=== PATIENT | female | born 1935 | race Caucasian/White ===

== ENCOUNTER 2016-06-04 14:49 | Emergency (ER) | payer MEDICARE, BC, OTHER ==
[2016-06-04 15:04] VITALS: BMI 18.8
--- NOTE | 2016-06-04 15:46 | PDOC ---
History of Present Illness - History of Present Illness Initial Comments: 06/04/16 16:32 The patient is a 81 year old female with significant past medical history of hypertension, hyperlipidemia, and depression who presents to the emergency department with weakness for the last few months. The patient had a recent visit to the ED about 3 months ago with the same complaint and was discharged home. She has been doing physical therapy and a home exercise program for her weakness but this doesnt help. The patient states she eats a minimal diet at home but denies any decreased appetite. She denies any pain. The patient denies any bleeding, diarrhea, leg swelling. She denies recent illness, fevers, or chills. She denies any sick contacts. <Gaby Lou - Last Filed: 06/04/16 16:32> - General History Source: Patient Exam Limitations: No Limitations <Jasmin Barnes - Last Filed: 06/06/16 14:06> - General Chief Complaint: Weakness Stated Complaint: Weakness Time Seen by Provider: 06/04/16 15:23 Past History <Gaby Lou - Last Filed: 06/04/16 16:32> - Past Medical History HTN: Yes Hypercholesterolemia: Yes Psychiatric Problems: Yes (DEPRESSION) Suicide Attempt (Hx): No - Psycho/Social/Smoking Cessation Hx Anxiety: No Suicidal Ideation: No Smoking History: Current every day smoker Have you smoked in the past 12 months: Yes Number of Cigarettes Smoked Daily: 3 Information on smoking cessation initiated: No 'Breaking Loose' booklet given: 03/02/16 Hx Alcohol Use: No Drug/Substance Use Hx: No Substance Use Type: None <Jasmin Barnes - Last Filed: 06/06/16 14:06> - Past Medical History Allergies/Adverse Reactions: Allergies Allergy/AdvReac Type Severity Reaction Status Date / Time egg Allergy Verified 06/04/16 15:04 flu shot Allergy Uncoded 06/04/16 15:04 Home Medications: Ambulatory Orders Enalapril Maleate [Vasotec -] 2.5 mg PO DAILY 09/11/15 Escitalopram Oxalate [Lexapro -] 10 mg PO DAILY 09/11/15 Review of Systems - Review of Systems Able to Perform ROS?: Yes Comments:: 06/04/16 16:33 GENERAL/CONSTITUTIONAL: +Weakness. No: fever, chills, loss of appetite. HEAD, EYES, EARS, NOSE AND THROAT: No: change in vision, ear pain, discharge, sore throat, throat swelling. CARDIOVASCULAR: No: chest pain, lightheadedness, palpitations, syncope RESPIRATORY: No: cough, shortness of breath, wheezing, hemoptysis, stridor. GASTROINTESTINAL: No: nausea, vomiting, abdominal cramping, diarrhea, rectal bleeding, constipation. GENITOURINARY: No: dysuria, hematuria, frequency, urgency, flank pain. MUSCULOSKELETAL: No: back pain, neck pain, joint pain, muscle swelling or pain SKIN AND BREASTS: No: lesions, pallor, rash or easy bruising. NEUROLOGIC: No: headache, vertigo, paresthesias, weakness ENDOCRINE: No: unexplained weight gain or loss HEMATOLOGIC/LYMPHATIC: No: anemia, easy bleeding, swelling nodes <Gaby Lou - Last Filed: 06/04/16 16:32> *Physical Exam - Vital Signs Last Vital Signs Temp Pulse Resp BP Pulse Ox 97.4 F L 77 18 115/61 97 06/04/16 14:59 06/04/16 14:59 06/04/16 14:59 06/04/16 14:59 06/04/16 14:59 - Physical Exam Comments: 06/04/16 16:33 GENERAL: The patient is in no acute distress. HEAD: Normal with no signs of trauma. EYES: PERRLA, EOMI, sclera anicteric, conjunctiva clear. ENT: Ears normal, nares patent, oropharynx clear without exudates. Moist mucous membranes. NECK: Normal range of motion, supple without lymphadenopathy, JVD, or masses. LUNGS: Breath sounds equal, clear to auscultation bilaterally. No wheezes, and no crackles. HEART: Regular rate and rhythm, normal S1 and S2 without murmur, rub or gallop. ABDOMEN: Soft, nontender, normoactive bowel sounds. No guarding, no rebound. EXTREMITIES: Normal range of motion, no edema. No clubbing or cyanosis. No erythema, or tenderness. NEUROLOGICAL: Cranial nerves II through XII grossly intact. Normal speech. No focal neurological deficits. MUSCULOSKELETAL: Back non-tender to palpation, no CVA tenderness SKIN: Warm, Dry, normal turgor, no rashes or lesions noted. <Gaby Lou - Last Filed: 06/04/16 16:32> - Vital Signs Last Vital Signs Temp Pulse Resp BP Pulse Ox 97.4 F L 77 18 115/61 97 06/04/16 14:59 06/04/16 14:59 06/04/16 14:59 06/04/16 14:59 06/04/16 14:59 <Jasmin Barnes - Last Filed: 06/06/16 14:06> Heart Score/ECG Review #1 ECG reviewed & interpreted by me at: 17:50 06/04/16 17:50 Twelve-lead EKG was performed and reviewed by me. There is normal sinus rhythm with a normal rate of 66bpm. The axis is normal. The intervals are normal - pr: 168ms, QRS: 74ms, QTc:431ms. There are no ST or T wave abnormalities. <Jasmin Barnes - Last Filed: 06/06/16 14:06> ED Treatment Course - LABORATORY CBC & Chemistry Diagram: 06/04/16 16:25 06/04/16 16:25 <Gaby Lou - Last Filed: 06/04/16 16:32> - LABORATORY CBC & Chemistry Diagram: 06/04/16 16:25 06/04/16 16:25 <Jasmin Barnes - Last Filed: 06/06/16 14:06> Medical Decision Making - Medical Decision Making 06/04/16 15:46 A portion of this note was documented by scribe services under my direction. I have reviewed the details of the note, within reason, and agree with the documentation with the following case summary and management plan written by me. Nursing documentation reviewed and incorporated into medical decision making 06/04/16 17:54 This is a 81-year-old female with recurrent presentations emergency department for generalized weakness. Workup has been unrevealing as far. Patient states she came to the emergency department today because she had difficulty getting out of bed and walking. She denies any fevers chills, chest pain, shortness of breath, palpitations. Patient denies focal weakness or numbness. No head trauma. Patient hasn't worked up by both GI and neurology. Per patient workup has been negative thus far. Patient states she eats a normal diet consistent of Tea, toast, bananas, yogurt. Will do basic labs Case reviewed with Dr Cerna 06/04/16 17:55 Laboratory Tests 06/04/16 06/04/16 16:25 16:25 WBC 5.4 Hgb 15.6 H Hct 46.1 H Plt Count 176 Neutrophils % 67.6 Lymphocytes % 20.0 BUN 10 D Creatinine 0.6 Creatine Kinase 122 Troponin I < 0.02 Case again reviewed with Dr cerna Will place on observation Will hydrate Will monitor Pending UA 06/06/16 13:52 <Jasmin Barnes - Last Filed: 06/06/16 14:06> *DC/Admit/Observation/Transfer - Attestations Scribe Attestion: 06/04/16 16:33 Documentation prepared by Gaby Lou, acting as medical lab director for Jasmin Barnes MD. <Gaby Lou - Last Filed: 06/04/16 16:32> - Discharge Dispostion Admit: Yes <Jasmin Barnes - Last Filed: 06/06/16 14:06> Diagnosis at time of Disposition: Weakness - Discharge Dispostion Disposition: HOME Condition at time of disposition: Stable - Referrals Referrals: Sam Dejesus PSYD [Psychologist] - Lincoln Eaton MD [Primary Care Provider] - - Patient Instructions Printed Discharge Instructions: DI for Muscle Weakness Additional Instructions: Sade Thank you for coming in to the ER today Please call Dr. Eaton tomorrow for an appointment Please also call for a referral to a therapist Return to the ER for any other concerns or complaints
[2016-06-04 16:34] LABS: BASOPHIL 0.9 % (0-2.0); EOSINOPHIL 2.3 % (0-4.5); MCH 30.1 pg (25.7-33.7); MCHC 33.8 g/dl (32.0-36.0); MEAN PLT VOLUME 9.7 fl (7.5-11.1); NEUTROPHILS 67.6 % (42.8-82.8); PLATELET COUNT 176 K/MM3 (134-434); RDW 13.7 % (11.6-15.6); WHITE BLOOD COUNT 5.4 K/mm3 (4.0-10.0)
[2016-06-04 17:08] LABS: ANION GAP 9 (8-16); BILIRUBIN,TOTAL 0.3 mg/dL (0.2-1.0); CO2 29 mmol/L (21-32); CREATININE 0.6 mg/dL (0.55-1.02); GLUCOSE,RANDOM 103 mg/dL (74-106); SGOT/AST 19 U/L (15-37); SGPT/ALT 17 U/L (12-78); TOT PROT 7.3 g/dl (6.4-8.2)
[2016-06-04 17:16] LABS: ALK PHOS 92 U/L (45-117); TROPONIN I < 0.02 ng/ml (0.00-0.05)
--- NOTE | 2016-06-04 18:18 | PDOC ---
ED Treatment Course - LABORATORY CBC & Chemistry Diagram: 06/04/16 16:25 06/04/16 16:25 - ADDITIONAL ORDERS Additional order review: Laboratory Results 06/04/16 16:25 Sodium 139 Potassium 3.8 Chloride 101 Carbon Dioxide 29 Anion Gap 9 BUN 10 D Creatinine 0.6 Creat Clearance w eGFR > 60 Random Glucose 103 Calcium 9.0 Total Bilirubin 0.3 AST 19 ALT 17 Alkaline Phosphatase 92 Creatine Kinase 122 Troponin I < 0.02 Total Protein 7.3 Albumin 4.0 06/04/16 16:25 RBC 5.17 MCV 89.0 MCHC 33.8 RDW 13.7 MPV 9.7 Neutrophils % 67.6 Lymphocytes % 20.0 Monocytes % 9.2 Eosinophils % 2.3 Basophils % 0.9 - RADIOLOGY Radiology Studies Ordered: Category Date Time Status CHEST X-RAY PORTABLE* [RAD] Stat Radiology 06/04/16 16:23 Taken Medical Decision Making - Medical Decision Making PT absolutely refusing to stay in the hospital She wants to be discharged to home Pt tolerated food in the ER Has no other complaints at this time *DC/Admit/Observation/Transfer Diagnosis at time of Disposition: Weakness - Discharge Dispostion Disposition: HOME Condition at time of disposition: Stable Decision to Admit order Date/Time: Decision to Admit Order Category Date Time Status Decision to Admit to Hospital Routine Admission 06/04/16 17:56 Active - Referrals Referrals: Lincoln Eaton MD [Primary Care Provider] - Sam Dejesus PSYD [Psychologist] - - Patient Instructions Printed Discharge Instructions: DI for Muscle Weakness Additional Instructions: Sade Thank you for coming in to the ER today Please call Dr. Eaton tomorrow for an appointment Please also call for a referral to a therapist Return to the ER for any other concerns or complaints - Post Discharge Activity
[2016-06-04 18:20] LABS: URINE APPEARANCE CLEAR; URINE BILIRUBIN NEGATIVE (NEGATIVE); URINE BLOOD NEGATIVE (NEGATIVE); URINE COLOR STRAW; URINE GLUCOSE (UA) NEGATIVE (NEGATIVE); URINE KETONE NEGATIVE (NEGATIVE); URINE NITRITE NEGATIVE (NEGATIVE); URINE PROTEIN NEGATIVE (NEGATIVE); URINE UROBILINOGEN NEGATIVE E.U./dl (0.2-1.0)
[2016-06-04 18:56] VITALS: BP 126/61; PULSE 61; TEMP 98.2
[2016-06-04 18:57] LABS: URINE LEUK ESTERASE TRACE (NEGATIVE)
[2016-06-04 19:21] LABS: URINE BACTERIA RARE /hpf (NONE SEEN); URINE WBC 1 /hpf (3-5)
--- NOTE | 2016-06-05 14:11 | EKG ---
Test Reason : Blood Pressure : / mmHG Vent. Rate : 066 BPM Atrial Rate : 066 BPM P-R Int : 168 ms QRS Dur : 074 ms QT Int : 412 ms P-R-T Axes : 076 066 067 degrees QTc Int : 431 ms POOR DATA QUALITY, INTERPRETATION MAY BE ADVERSELY AFFECTED NORMAL SINUS RHYTHM POSSIBLE LEFT ATRIAL ENLARGEMENT BORDERLINE ECG WHEN COMPARED WITH ECG OF 02-MAR-2016 14:21, NO SIGNIFICANT CHANGE WAS FOUND Confirmed by ANDRÉS MCMAHAN MD ([id number]) on 06/05/2016 2:11:00 PM Referred By: Confirmed By:ANDRÉS MCMAHAN MD
== END 2016-06-04 18:56 | disposition home or self-care (01) ==
LOC: JER 14:49
DX: R53.1 Weakness (principal); I10 Essential (primary) hypertension; E78.00 Pure hypercholesterolemia, unspecified; F32.9 Major depressive disorder, single episode, unspecified; F17.210 Nicotine dependence, cigarettes, uncomplicated
CPT/HCPCS: 36415; 71010-TC; 80053; 81003; 81015; 82550; 84484; 85025; 87086; 93005; 93010; 99283-25